=== PATIENT | male | born 1980 | race Caucasian/White ===

== ENCOUNTER 2018-06-16 21:14 | Emergency (ER) | payer BC, OTHER ==
[~2018-06-16] VITALS: Ht 185.4 cm; Wt 129.3 kg
[2018-06-16 22:42] LABS: Basophils # (auto) 0.1 uL; Basophils % (auto) 0.9 % (0.0-2.0); Eosinophils # (auto) 0.2 uL; Eosinophils % (auto) 1.6 % (0.0-7.0); Hematocrit 43.3 % (41.0-53.0); Hemoglobin 14.4 g/dL (13.5-17.5); Lymphocytes # (auto) 3.1 uL; Lymphocytes % (auto) 27.8 % (10.0-50.0); Mean Corpuscular Hemoglobin 29.5 pg (28.0-32.0); Mean Corpuscular Hgb Conc. 33.4 g/dL (32.0-36.0); Mean Corpuscular Volume 88.4 fL (80.0-100.0); Monocytes # (auto) 0.8 uL; Monocytes % (auto) 7.3 % (0.0-12.0); Neutrophils % (auto) 62.4 % (37.0-80.0); Nucleated Red Blood Cells % 0.1 %; Platelet Count (auto) 266 10^3/uL (140-450); Red Cell Distribution Width 14.2 % (11.8-14.3); White Blood Cell 11.2 10^3/uL (4.4-10.8)
[2018-06-16 22:47] LABS: Urine Bacteria NONE SEEN /hpf (None Seen); Urine Blood Negative /uL (Negative); Urine Mucus FEW (None Seen); Urine Specific Gravity 1.008 (1.001-1.035); Urine WBC <1 /hpf (0 - 3)
[2018-06-16 22:56] LABS: INR 0.93 (0.9-1.15); Partial Thromboplastin Time 27.1 sec (23.78-33.04)
[2018-06-16 23:04] LABS: Alanine Aminotransferase 64 U/L (16-61); Albumin 4.2 g/dL (3.4-5.0); Alkaline Phosphatase 90 U/L (45-117); Anion Gap 6 (5-15); Aspartate Aminotransferase 37 U/L (15-37); BUN/Creatinine Ratio 9.4; Bilirubin, Total 0.3 mg/dL (0.2-1.0); Blood Urea Nitrogen 12 mg/dL (7-18); Carbon Dioxide 24 mmol/L (21-32); Chloride 109 mmol/L (98-107); GFR African American 83 mL/min; GFR Non-African American 69 mL/min; Glucose 90 mg/dL (74-106); Magnesium 2.5 mg/dL (1.6-2.6); Potassium 3.9 mmol/L (3.5-5.1); Sodium 139 mmol/L (136-145); Total Protein 7.9 g/dL (6.4-8.2)
[2018-06-17 02:52] VITALS: BP 136/87
== END 2018-06-17 04:01 | disposition left against medical advice (07) ==
LOC: ER 21:24
DX: R07.9 Chest pain, unspecified (principal); Z53.21 Procedure and treatment not carried out due to patient leaving prior to being seen by health care provider
CPT/HCPCS: 36415; 71045; 80053; 81001; 83735; 83880; 84484; 85025; 85610; 85730; 93005

== ENCOUNTER 2020-01-13 12:30 | Inpatient (IN) | payer BC ==
[~2020-01-13] VITALS: Ht 185.4 cm; Wt 127.0 kg
[2020-01-13] MEDS ORDERED: SODIUM CHLORIDE 0.9% 1,000 ML IV ONE (13:10)
[2020-01-13] MEDS ORDERED: ASPirin 81 mg TAB PO ONE (13:15)
[2020-01-13 13:17] LABS: Basophils # (auto) 0.1 10 ^3/uL (0-0.2); Eosinophils # (auto) 0.1 10 ^3/uL (0-0.8); Eosinophils % (auto) 0.9 % (0.0-7.0); Hematocrit 46.2 % (41.0-53.0); Hemoglobin 15.4 g/dL (13.5-17.5); Lymphocytes # (auto) 2.4 10 ^3/uL (0.4-5.4); Lymphocytes % (auto) 22.5 % (10.0-50.0); Mean Corpuscular Hemoglobin 29.2 pg (28.0-32.0); Mean Corpuscular Hgb Conc. 33.4 g/dL (32.0-36.0); Mean Corpuscular Volume 87.4 fL (80.0-100.0); Monocytes # (auto) 0.6 10 ^3/uL (0-1.3); Monocytes % (auto) 5.8 % (0.0-12.0); Neutrophils # (auto) 7.5 10 ^3/uL (1.6-8.6); Neutrophils % (auto) 69.8 % (37.0-80.0); Nucleated Red Blood Cells % 0.1 %; Platelet Count (auto) 270 10^3/uL (140-450); Red Blood Cells 5.29 10^6/uL (4.5-5.90); Red Cell Distribution Width 13.5 % (11.8-14.3); White Blood Cell 10.8 10^3/uL (4.4-10.8)
[2020-01-13 13:32] LABS: INR 1.01 (0.9-1.15); Partial Thromboplastin Time 25.6 sec (23.64-32.05)
[2020-01-13 13:39] LABS: Alanine Aminotransferase 66 U/L (16-61); Albumin 4.1 g/dL (3.4-5.0); Anion Gap 8 (5-15); Blood Urea Nitrogen 9 mg/dL (7-18); Calcium 9.1 mg/dL (8.5-10.1); Carbon Dioxide 25 mmol/L (21-32); Chloride 104 mmol/L (98-107); Glucose 129 mg/dL (74-106); Magnesium 2.3 mg/dL (1.6-2.6); Potassium 3.9 mmol/L (3.5-5.1); Sodium 137 mmol/L (136-145)
[2020-01-13 13:44] LABS: Alkaline Phosphatase 83 U/L (45-117); Aspartate Aminotransferase 39 U/L (15-37); Bilirubin, Total 0.4 mg/dL (0.2-1.0); GFR African American 95 mL/min; GFR Non-African American 78 mL/min; Total Protein 7.9 g/dL (6.4-8.2)
[2020-01-13] MEDS ORDERED: NITROGLYCERIN 0.4 MG SL TAB SL PRN (14:45)
[2020-01-13] MEDS ORDERED: METOPROLOL TARTRATE 1MG/1ML-5ML VIAL IV ONE (14:45)
[2020-01-13] MEDS ORDERED: MORPHINE SULF INJ 2 MG/ML SYRINGE 1ML IV PRN (14:45)
[2020-01-13] MEDS ORDERED: IOHEXOL 350 MG/ML 100ML IJ ONE (14:59)
[2020-01-13] MEDS: SODIUM CHLORIDE 0.9% 1,000 ML IV SCH (15:00)
[2020-01-13] MEDS ORDERED: MORPHINE SULFATE 4 MG/ML SYR/VIAL IV PRN (15:00)
[2020-01-13] MEDS ORDERED: ONDANSETRON HCL 4 MG/2 ML VIAL IV PRN (15:00)
[2020-01-13] MEDS ORDERED: LORazepam 0.5 MG TAB PO PRN (15:00)
[2020-01-13] MEDS ORDERED: HYDROcodone-ACET 5/325MG TAB PO PRN (15:00)
[2020-01-13] MEDS ORDERED: DEXTROSE (50%) 50ML SYRG IV PRN (15:00)
[2020-01-13] MEDS ORDERED: ALUM & MAG HYDROX-SIMETH LIQ(MAALOX) 30 ML PO ONE (15:00)
[2020-01-13 16:30] VITALS: BP 157/95
[2020-01-13 16:40] VITALS: BP 157/95
--- NOTE | 2020-01-13 16:40 | NUR ---
Telemetry admit from ER CONY KWAN admitted to Telemetry unit. No SBAR report received from [employer]. Patient oriented to Cherry Reese RN primary RN, unit, room, bed, and unit policies regarding patient care and visiting hours. Patient now on continuous telemetry monitoring, tele box #[id number] and telemetry reading on arrival to unit is SR. All questions and concerns addressed, patient verbalized understanding. Opening Shift Note Assumed care of patient, who is alert and oriented x4. No S/S of distress/SOB or pain. Bed is low, locked with 2x side rails up. Call light is within reach. Instructed on POC and to call for assist PRN, will continue to monitor for changes Q1hr and PRN.
[2020-01-13] MEDS: ACCU-CHEK COMFORT CURVE STRIP VI SCH ×2 (17:00→21:42)
[2020-01-13] MEDS: InsuLIN REG 1unit/0.01ml Soln (100units/ml) SC SCH ×2 (17:00→21:43)
--- NOTE | 2020-01-13 17:00 | NUR ---
Unable to obtain list of home medications Unable to obtain home medications. Per patient he will get a list from , Charla.
[2020-01-13] MEDS: FUROSEMIDE 100 MG/10ML VIAL IV SCH (17:45)
--- NOTE | 2020-01-13 18:49 | NUR ---
AMA/SMOKE AMA signed and in chart. Educated patient on risks including not being able to be monitored. Patient verbalized understanding but would still like to go downstairs to smoke.
--- NOTE | 2020-01-13 19:30 | NUR ---
opening note pt A&Ox4. pt is currently dangling at bedside, and is ambulatory. respirations are even and non labored on room air. bed is in low locked position, call light within reach.
--- NOTE | 2020-01-13 21:35 | NUR ---
pt c/o lower back pain, rating of 6/10. pt will be medicated appropriately.
[2020-01-13] MEDS: METOPROLOL TARTRATE 25 MG TAB PO SCH (21:40)
[2020-01-13 22:00] VITALS: BP 128/80
[2020-01-13] MEDS ORDERED: ATORVASTATIN 20 MG TAB PO SCH (22:00)
--- NOTE | 2020-01-13 22:58 | NUR ---
pt left AMA to smoke
--- NOTE | 2020-01-13 23:30 | NUR ---
pt returned to [facility].
[2020-01-14] MEDS: SODIUM CHLORIDE 0.9% 1,000 ML IV SCH (04:43)
[2020-01-14 04:45] VITALS: BP 118/71
[2020-01-14] MEDS: FUROSEMIDE 100 MG/10ML VIAL IV SCH ×2 (05:25→17:46)
--- NOTE | 2020-01-14 05:26 | NUR ---
lab at bedside
[2020-01-14 06:04] LABS: Basophils # (auto) 0.1 10 ^3/uL (0-0.2); Basophils % (auto) 0.9 % (0.0-2.0); Eosinophils # (auto) 0.2 10 ^3/uL (0-0.8); Eosinophils % (auto) 1.7 % (0.0-7.0); Hematocrit 43.4 % (41.0-53.0); Hemoglobin 14.5 g/dL (13.5-17.5); Lymphocytes # (auto) 2.7 10 ^3/uL (0.4-5.4); Lymphocytes % (auto) 26.3 % (10.0-50.0); Mean Corpuscular Hemoglobin 29.2 pg (28.0-32.0); Mean Corpuscular Hgb Conc. 33.5 g/dL (32.0-36.0); Mean Corpuscular Volume 87.3 fL (80.0-100.0); Monocytes # (auto) 0.7 10 ^3/uL (0-1.3); Monocytes % (auto) 6.5 % (0.0-12.0); Neutrophils # (auto) 6.5 10 ^3/uL (1.6-8.6); Neutrophils % (auto) 64.6 % (37.0-80.0); Platelet Count (auto) 243 10^3/uL (140-450); Red Blood Cells 4.97 10^6/uL (4.5-5.90); Red Cell Distribution Width 13.2 % (11.8-14.3); White Blood Cell 10.2 10^3/uL (4.4-10.8)
[2020-01-14 06:20] LABS: INR 1.04 (0.9-1.15)
[2020-01-14] MEDS ORDERED: TIZA6CAP10 PO (06:29)
[2020-01-14] MEDS ORDERED: CLOP75TA41 PO (06:29)
[2020-01-14 06:30] LABS: Magnesium 2.2 mg/dL (1.6-2.6); Potassium 3.8 mmol/L (3.5-5.1)
[2020-01-14] MEDS ORDERED: METO25TA5 PO (06:32)
[2020-01-14] MEDS ORDERED: ATOR80TA PO (06:32)
[2020-01-14] MEDS ORDERED: LISI-646 PO (06:32)
[2020-01-14] MEDS: ACCU-CHEK COMFORT CURVE STRIP VI SCH ×2 (06:33→11:20)
[2020-01-14] MEDS: InsuLIN REG 1unit/0.01ml Soln (100units/ml) SC SCH ×2 (06:34→11:20)
[2020-01-14 06:36] LABS: Albumin 3.7 g/dL (3.4-5.0); BUN/Creatinine Ratio 10.6; Bilirubin, Total 0.6 mg/dL (0.2-1.0); Calcium 8.6 mg/dL (8.5-10.1); Total Protein 7.1 g/dL (6.4-8.2)
--- NOTE | 2020-01-14 06:37 | NUR ---
pt left AMA to smoke
--- NOTE | 2020-01-14 07:05 | NUR ---
closing note pt has returned to [address]. pt A&Ox4. pt denies pain or discomfort at this time. respirations are even and nonlabored on room air. bed in low locked position, call light within reach.
--- NOTE | 2020-01-14 07:15 | NUR ---
Opening Shift Note Assumed care of patient, who alert and oriented x4. Ambulates independently with steady gait. Respirations are even and unlabored. No reports of chest pain. Bed is low, locked with 2x side rails up. Call light is within reach. Instructed on POC and to call for assist PRN, will continue to monitor for changes Q1hr and PRN.
--- NOTE | 2020-01-14 08:25 | NUR ---
IV insertion IV access obtained, via clean sterile technique by inserting a 20 gauge catheter to the right upper arm/bicep after 1 attempt(s). IV secured properly. No trauma to site. Patient tolerated procedure well.
[2020-01-14] MEDS ORDERED: ADENOSINE 107 MG in GIVE UN-DILUTED 0 ML IV ONE (08:30)
[2020-01-14 09:00] VITALS: BP 153/85
[2020-01-14] MEDS ORDERED: DOCUSATE SOD 100 MG CAP PO SCH (10:00)
[2020-01-14] MEDS ORDERED: ENOXAPARIN SOD 40 MG/0.4 ML SYRINGE SC SCH (10:00)
[2020-01-14] MEDS: ASPirin 81 mg TAB PO SCH (10:43)
[2020-01-14] MEDS: CLOPIDOGREL BISULFATE 75 MG TAB PO SCH (10:44)
[2020-01-14] MEDS: LISINOPRIL 20 MG TAB PO SCH (10:44)
[2020-01-14] MEDS: METOPROLOL TARTRATE 25 MG TAB PO SCH (10:44)
[2020-01-14] MEDS ORDERED: cloNIDine HCL 0.1 MG TAB PO PRN (12:00)
[2020-01-14] MEDS: METOPROLOL TARTRATE 50 MG TAB PO SCH ×2 (12:47→21:41)
[2020-01-14] MEDS: traMADol HCL 50 MG TAB PO PRN ×2 (12:47→20:19)
[2020-01-14 13:00] VITALS: BP 136/74
[2020-01-14] MEDS ORDERED: OPTISON 3ml Vial for INJ IV ONE (14:51)
[2020-01-14] MEDS ORDERED: ASPI-498 PO (15:55)
[2020-01-14] MEDS ORDERED: TRAM50TA2 PO (15:57)
[2020-01-14] MEDS ORDERED: CHOL135C10 PO (15:57)
[2020-01-14] MEDS ORDERED: MORPHINE SULF INJ 2 MG/ML SYRINGE 1ML IV PRN (16:15)
--- NOTE | 2020-01-14 19:35 | NUR ---
opening note pt A&OX4 and ambulatory. respirations even and nonlabored on room air. pt has AMA in chart. POC discussed with patient. bed in low locked position, call light within reach.
--- NOTE | 2020-01-14 20:12 | NUR ---
pt c/o pain at neck (cervical area), rating of 6/10. pt will be medicated appropriately.
[2020-01-14 22:00] VITALS: BP 123/67
[2020-01-14] MEDS ORDERED: ATORVASTATIN 20 MG TAB PO SCH (22:00)
[2020-01-15 04:59] VITALS: BP 115/77
[2020-01-15] MEDS: FUROSEMIDE 100 MG/10ML VIAL IV SCH (05:29)
--- NOTE | 2020-01-15 05:30 | NUR ---
PT c/o pain at lower back area, rating of 6/10. pt will be medicated appropriately.
[2020-01-15] MEDS: traMADol HCL 50 MG TAB PO PRN (05:36)
--- NOTE | 2020-01-15 07:03 | NUR ---
closing note pt resting in left lateral position with eyes closed. no s/s of pain or discomfort at this time. respirations are even and nonlabored on room air. bed in low locked position, call light within reach.
--- NOTE | 2020-01-15 07:31 | NUR ---
Opening Shift Note Assumed care of patient, awake and alert. No S/S of distress/SOB or pain. Instructed on POC and to call for assist PRN, will continue to monitor for changes Q1hr and PRN. Bed is set in lowest locked position with side rails up x 2 for safety and call light is within reach.
[2020-01-15 08:00] VITALS: BP 127/80
[2020-01-15 09:00] VITALS: BP 116/76
[2020-01-15] MEDS: CLOPIDOGREL BISULFATE 75 MG TAB PO SCH (10:14)
[2020-01-15] MEDS: LISINOPRIL 20 MG TAB PO SCH (10:15)
[2020-01-15] MEDS: ASPirin 81 mg TAB PO SCH (10:15)
[2020-01-15] MEDS: METOPROLOL TARTRATE 50 MG TAB PO SCH (10:15)
--- NOTE | 2020-01-15 11:00 | NUR ---
Selin Quispe, to obtain cardiac clearance for discharge.
--- NOTE | 2020-01-15 11:15 | NUR ---
Received call back From Dr. Quispe, from cardiology standpoint patient is cleared for discharge.
[2020-01-15 11:28] VITALS: BP 129/73
--- NOTE | 2020-01-15 12:51 | NUR ---
Discharge instructions given as ordered. Encourage to follow up with PMD as instructed. Patient made aware to obtain follow up appointment with PMD within one week of discharge. All questions and concerns addressed. Patient verbalized understanding. IV removed with catheter intact, pressure dressing applied. Telemetry unit returned to ICU. Patient taken to vehicle via wheelchair with all personal belongings, accompanied by staff. No distress noted at time of departure.
== END 2020-01-15 12:50 | disposition home or self-care (01) | DRG 313 ==
LOC: ER 12:30 → TELE 12:31 → TELE-WESTW 16:19
PROVIDERS: ADMIT Hospitalist; ATTEND Family Medicine
DX: R07.9 Chest pain, unspecified (principal); I25.110 Atherosclerotic heart disease of native coronary artery with unstable angina pectoris; I10 Essential (primary) hypertension; M19.90 Unspecified osteoarthritis, unspecified site; E78.5 Hyperlipidemia, unspecified; K76.0 Fatty (change of) liver, not elsewhere classified; E66.01 Morbid (severe) obesity due to excess calories; E78.1 Pure hyperglyceridemia; F17.210 Nicotine dependence, cigarettes, uncomplicated; G89.29 Other chronic pain; M54.5 Low back pain; E78.00 Pure hypercholesterolemia, unspecified; Z82.49 Family history of ischemic heart disease and other diseases of the circulatory system; I25.2 Old myocardial infarction; Z82.0 Family history of epilepsy and other diseases of the nervous system; Z79.899 Other long term (current) drug therapy; Z79.82 Long term (current) use of aspirin; Z95.5 Presence of coronary angioplasty implant and graft; Z68.36 Body mass index [BMI] 36.0-36.9, adult
CPT/HCPCS: 36415; 71046; 71275; 78452; 80053; 80061; 82550; 82962; 83036; 83735; 84100; 84443; 84484; 85025; 85379; 85610; 85730; 93005; 93017; 93306; G0378; J0153; Q9956